=== PATIENT | female | born 1955 | race Caucasian/White ===

== ENCOUNTER 2017-10-28 06:39 | Day surgery (SDC) | payer MEDICAID ==
[~2017-10-28] VITALS: Ht 163.8 cm; Wt 126.4 kg
[~2017-10-28 06:39] MED LIST: ACET-2744 PO; ALBU8.5H8 IH; IPRA4AER IH; LEVO125 PO
[2017-10-28] MEDS ORDERED: LIDOCAINE HCL 4% 50 ML SOLUTION TP ONE (06:40)
[2017-10-28] MEDS ORDERED: BENZOCAINE 20% 50 MCG/SPRAY 57 GM TP ONE (06:40)
[2017-10-28] MEDS ORDERED: LIDOCAINE HCL 2% 30 ML JELLY TP ONE (06:40)
[2017-10-28] MEDS ORDERED: SODIUM CHLORIDE 0.9% 1,000 ML IV ONE ×2 (07:00→07:30)
[2017-10-28] MEDS ORDERED: BUDE10.2 IH (07:23)
[2017-10-28] MEDS ORDERED: GLIM2 PO (07:23)
[2017-10-28] MEDS ORDERED: ATOR40TA28 PO (07:23)
[2017-10-28] MEDS ORDERED: FAMO20 PO (07:23)
[2017-10-28] MEDS ORDERED: METF500T4 PO (07:24)
[2017-10-28 07:52] LABS: GLUCOMETER DEV NAME(LOC) SDS 5; GLUCOSE,POINT OF CARE 116 MG/DL (70-110)
[2017-10-28] MEDS ORDERED: MIDAZOLAM HCL 2 MG/2 ML VIAL ONE (08:06)
[2017-10-28] MEDS ORDERED: FentaNYL CITRATE-PF 100 MCG/2 ML VIAL ONE (08:06)
[2017-10-28] MEDS ORDERED: MethylPREDNISolone SOD SUCC 125 MG/2 ML VIAL IVP ONE (09:00)
[2017-10-28] MEDS ORDERED: OXYGEN THERAPY IH SCH (20:00)
== END 2017-10-28 10:20 | disposition home or self-care (01) ==
LOC: SURGERY 06:39
PROVIDERS: ATTEND Internal Medicine Critical Care Medicine
DX: J38.4 Edema of larynx (principal); B37.0 Candidal stomatitis; J98.19 Other pulmonary collapse; J47.9 Bronchiectasis, uncomplicated; M06.9 Rheumatoid arthritis, unspecified; Z79.84 Long term (current) use of oral hypoglycemic drugs; Z91.011 Allergy to milk products; Z90.89 Acquired absence of other organs; Z90.49 Acquired absence of other specified parts of digestive tract; Z98.890 Other specified postprocedural states; Z79.899 Other long term (current) drug therapy
CPT/HCPCS: 31623; 31624; 36415; 71045; 82962; 87015; 87070; 87205; 87220; 87556; 88108; 88312; J2250; J2930; J3010; J7030